=== PATIENT | male | born 1965 | race Caucasian/White ===

== ENCOUNTER 2016-09-15 11:05 | Emergency (ER) | payer OTHER ==
[~2016-09-15] VITALS: Ht 170.2 cm; Wt 73.5 kg
[2016-09-15] MEDS ORDERED: AZITHROMYCIN 250 MG TABLET PO ONE (12:00)
[2016-09-15] MEDS ORDERED: CEFTRIAXONE 500 MG VIAL IM ONE (12:00)
[2016-09-15] MEDS ORDERED: AZITHROMYCIN 250 MG TABLET ONE (12:04)
[2016-09-15] MEDS ORDERED: CEFTRIAXONE 500 MG VIAL ONE (12:04)
[2016-09-15] MEDS ORDERED: LIDOCAINE HCL 1% 20 ML VIAL ONE (12:05)
[2016-09-15 12:14] LABS: *BILIRUBIN,URIN NEGATIVE (NEGATIVE); *BLOOD, URINE Trace-intact (NEGATIVE); *CLARITY,URINE CLEAR (CLEAR); *COLOR,URINE YELLOW (YELLOW); *KETONES,URINE NEGATIVE (NEGATIVE); *PROTEIN,URINE 1+ (NEGATIVE); *UROBILINOGEN,URINE 0.2 E.U./dl (NORMAL); LEUKOCYTE ESTERASE ,URINE NEGATIVE (NEGATIVE); NITRITE, URINE NEGATIVE (NEGATIVE); UGLUCOSE NEGATIVE (NEGATIVE)
--- NOTE | 2016-09-15 12:30 | NUR ---
Patient was seen by MD for c/o problems.
[2016-09-15 12:39] LABS: BACTERIA,URINE NONE SEEN /HPF (NONE SEEN); SQUAMOUS EPITHELIAL CELL,UR FEW /HPF (NONE SEEN); WBC,URINE 0-3 /HPF (0-3)
--- NOTE | 2016-09-15 14:02 | NUR ---
DC, RX and follow up instructions given and explained to patient who states he understands all instructions.
== END 2016-09-15 14:04 | disposition home or self-care (01) ==
LOC: ER 11:05
DX: A64 Unspecified sexually transmitted disease (principal); I86.1 Scrotal varices; N43.3 Hydrocele, unspecified
CPT/HCPCS: 76870; A4663; J0696; J3490; Q0144

== ENCOUNTER → 2016-10-07 | Emergency (ER) | payer OTHER ==
--- NOTE | 2016-10-07 19:40 | NUR ---
1ST CALL, NO SHOW
--- NOTE | 2016-10-07 19:55 | NUR ---
2ND CALL, NO SHOW, FILE WILL BE CLOSED LEFT BEFORE TRIAGE...
--- NOTE | 2016-10-07 19:56 | NUR ---
Patient left without being seen by ER physician.
== END | disposition home or self-care (01) ==
LOC: ER 19:30
DX: Z53.21 Procedure and treatment not carried out due to patient leaving prior to being seen by health care provider (principal)